=== PATIENT | male | born 1985 | race Caucasian/White ===

== ENCOUNTER 2021-03-10 21:44 | Emergency (ER) | payer SELFPAY ==
[~2021-03-10] VITALS: Ht 165.1 cm; Wt 73.5 kg
--- NOTE | 2021-03-10 21:48 | NUR ---
TO C WITH TOM CARPENTER.
[2021-03-10 21:49] VITALS: BP 123/77
--- NOTE | 2021-03-10 22:55 | NUR ---
PATIENT BIB [employer] [employer]. PATIENT EXAMINED BY DR. RODRIGUEZ. PATIENT MEDICALLY CLEARED AND RELEASED IN CUSTODY IN STABLE CONDITION. ORIGINAL PRE-BOOK FORM GIVEN TO OFFICER [place], #[id number].
== END 2021-03-10 22:55 ==
LOC: MED 21:44
DX: E11.9 Type 2 diabetes mellitus without complications (principal); I10 Essential (primary) hypertension; Z02.89 Encounter for other administrative examinations
CPT/HCPCS: 99283